=== PATIENT | female | born 2000 | race Two or more races ===

== ENCOUNTER 2019-02-07 20:12 | Emergency (ER) | payer SELFPAY ==
[~2019-02-07] VITALS: Ht 167.6 cm; Wt 74.4 kg
[2019-02-07 23:40] VITALS: BP 119/82
[2019-02-07] MEDS ORDERED: HYDROmorphone 2 MG/ML VIAL IV ONE (23:45)
[2019-02-07] MEDS ORDERED: ONDANSETRON PF 4 MG/2 ML VIAL. IVP ONE (23:45)
[2019-02-07 23:54] LABS: BASO # 0.1 x10^3/uL (0.0-0.2); BASO % 1 % (0-3); EOS % 0 % (0-3); HEMATOCRIT 37.5 % (36.0-47.0); HEMOGLOBIN 12.6 g/dL (12.0-15.5); LYMPH # 1.5 x10^3/uL (1.0-4.8); LYMPH % 15 % (24-48); MEAN CORPUSCULAR HEMOGLOBIN 28 pg (25-35); MEAN CORPUSCULAR HGB CONC 34 g/dL (31-37); MEAN CORPUSCULAR VOLUME 83 fL (79-100); MONO # 0.7 x10^3/uL (0.0-1.1); MONO % 7 % (0-9); NEUT % 78 % (31-73); PLATELET COUNT 324 x10^3/uL (140-400); WHITE BLOOD COUNT 10.3 x10^3/uL (4.0-11.0)
--- NOTE | 2019-02-08 00:05 | RAD ---
Indication:Fall. TECHNIQUE: 3 views of the left ankle COMPARISON:None FINDINGS/ impression: Mildly displaced fracture of the medial malleolus. Mildly displaced oblique fracture of the distal fibula extending to the ankle mortise. Moderate ankle soft tissue edema. Electronically signed by: Kin Lin DO (02/08/2019 12:02 AM) [facility]
[2019-02-08 00:06] LABS: CALCIUM 8.6 mg/dL (8.5-10.1); CREATININE 0.7 mg/dL (0.6-1.0); GFR 106.7
--- NOTE | 2019-02-08 00:13 | PHYS DOC ---
Past Medical History Past Medical History: No Pertinent History Past Surgical History: No Surgical History Alcohol Use: None Drug Use: None Adult General Chief Complaint Chief Complaint: ANKLE PROBLEM HPI HPI Patient is a 18 year old female presents to the ED or to check on that of left ankle injury. Patient states that earlier this evening she was a skateboard when she fell onto her left ankle. Patient went to an urgent care where they did an x-ray. She was found to have a bimalleolar ankle fracture and was placed in a boot. Patient was sent to the ER for further evaluation and treatment. Review of Systems Review of Systems Constitutional: Denies fever or chills [] Respiratory: Denies cough or shortness of breath [] Cardiovascular: Denies chest pain Musculoskeletal: Complains of pain in the left ankle All other systems were reviewed and found to be within normal limits, except as documented in this note. Current Medications Current Medications Current Medications Medications (Trade) Dose Ordered Sig/Rene Start Time Stop Time Status Last Admin Dose Admin Hydromorphone HCl (Dilaudid) 0.5 mg 1X ONCE 02/07/19 23:45 02/07/19 23:46 DC 02/07/19 23:53 0.5 MG Ondansetron HCl (Zofran) 4 mg 1X ONCE 02/07/19 23:45 02/07/19 23:46 DC 02/07/19 23:54 4 MG Allergies Allergies Allergies Coded Allergies Type Severity Reaction Last Updated Verified No Known Drug Allergies 02/07/19 No Physical Exam Physical Exam Constitutional: Well developed, well nourished, no acute distress, non-toxic appearance. [] HENT: Normocephalic, atraumatic Eyes: PERRLA, EOMI Neck: Normal range of motion, no tenderness, supple Lungs & Thorax: No respiratory distress Extremities: Swelling in the left medial and lateral malleolus. Mild bruising. Neurovascularly intact. Neurologic: Alert and oriented X 3 Current Patient Data Vital Signs Vital Signs Date Time Temp Pulse Resp B/P (MAP) Pulse Ox O2 Delivery O2 Flow Rate FiO2 02/07/19 23:53 16 92 02/07/19 23:40 105 119/82 (94) Room Air 02/07/19 20:31 98.7 98.7 Lab Values Laboratory Tests Test 02/07/19 23:40 White Blood Count 10.3 x10^3/uL (4.0-11.0) Red Blood Count 4.50 x10^6/uL (3.50-5.40) Hemoglobin 12.6 g/dL (12.0-15.5) Hematocrit 37.5 % (36.0-47.0) Mean Corpuscular Volume 83 fL (79-100) Mean Corpuscular Hemoglobin 28 pg (25-35) Mean Corpuscular Hemoglobin Concent 34 g/dL (31-37) Red Cell Distribution Width 13.0 % (11.5-14.5) Platelet Count 324 x10^3/uL (140-400) Neutrophils (%) (Auto) 78 % (31-73) H Lymphocytes (%) (Auto) 15 % (24-48) L Monocytes (%) (Auto) 7 % (0-9) Eosinophils (%) (Auto) 0 % (0-3) Basophils (%) (Auto) 1 % (0-3) Neutrophils # (Auto) 8.0 x10^3/uL (1.8-7.7) H Lymphocytes # (Auto) 1.5 x10^3/uL (1.0-4.8) Monocytes # (Auto) 0.7 x10^3/uL (0.0-1.1) Eosinophils # (Auto) 0.0 x10^3/uL (0.0-0.7) Basophils # (Auto) 0.1 x10^3/uL (0.0-0.2) Prothrombin Time 14.0 SEC (11.7-14.0) Prothrombin Time INR 1.1 (0.8-1.1) Sodium Level 143 mmol/L (136-145) Potassium Level 4.0 mmol/L (3.5-5.1) Chloride Level 107 mmol/L (98-107) Carbon Dioxide Level 28 mmol/L (21-32) Anion Gap 8 (6-14) Blood Urea Nitrogen 11 mg/dL (7-20) Creatinine 0.7 mg/dL (0.6-1.0) Estimated GFR (Cockcroft-Gault) 106.7 BUN/Creatinine Ratio 16 (6-20) Glucose Level 99 mg/dL (70-99) Calcium Level 8.6 mg/dL (8.5-10.1) Total Bilirubin Pending Aspartate Amino Transferase (AST) Pending Alanine Aminotransferase (ALT) Pending Alkaline Phosphatase Pending Total Protein Pending Albumin Pending Albumin/Globulin Ratio Pending Laboratory Tests 02/07/19 23:40 Laboratory Tests 02/07/19 23:40 EKG EKG [] Radiology/Procedures Radiology/Procedures Ordered x-ray of the left ankle Impressions: X-ray shows mildly distressed fracture of the medial malleolus. There is also an oblique fracture of the distal fibula extending into the ankle mortise. Course & Med Decision Making Course & Med Decision Making Pertinent Imaging studies reviewed. (See chart for details) Ordered x-ray of her left ankle. Patient is given careful 0.5 mg IV Dilaudid for pain control. Discussed case with on-call orthopedic surgeon who recommends the patient can be sent home and be seen in the office this week. Patient is currently in a boot and will be nonweightbearing. Discussed results and plan of care with patient. Patient is instructed to follow up with PCP in one to 2 days. Appropriate discharge instructions given to patient to return to the ED or to seek immediate medical evaluation. Dragon Disclaimer Dragon Disclaimer This electronic medical record was generated, in whole or in part, using a voice recognition dictation system. Departure Departure Impression: Primary Impression: Ankle fracture, bimalleolar, closed Disposition: 01 HOME, SELF-CARE Condition: IMPROVED Referrals: KENYETTA DONG II, MD Additional Instructions: Appropriate discharge instructions given to patient to return to the ED or to seek immediate medical evaluation. Patient follow-up with PCP in one to 2 days. Patient instructed to return to ED if symptoms worsen or if any concerns Patient is to be nonweightbearing on the left lower extremity. Scripts Hydrocodone/Apap 5-325 (NORCO 5-325 TABLET) 1 Each Tablet 1 EACH PO PRN Q6HRS PRN for PAIN, #15 as needed for pain Prov: TAMMY COPELAND DO 02/08/19 TAMMY COPELAND DO Feb 08, 2019 00:13
[2019-02-08 00:14] LABS: ALBUMIN/GLOBULIN RATIO 1.1 (1.0-1.7); TOTAL BILIRUBIN 0.3 mg/dL (0.2-1.0); TOTAL PROTEIN 7.5 g/dL (6.4-8.2)
[2019-02-08] MEDS ORDERED: HYDR-3164 PO (00:19)
== END 2019-02-08 00:38 | disposition home or self-care (01) ==
LOC: ER 20:12
DX: S82.842A Displaced bimalleolar fracture of left lower leg, initial encounter for closed fracture (principal); V00.131A Fall from skateboard, initial encounter; Y93.51 Activity, roller skating (inline) and skateboarding; Y92.89 Other specified places as the place of occurrence of the external cause; Y99.8 Other external cause status
CPT/HCPCS: 36415; 73610; 80053; 85025; 85610; 96374; 96375; 99285; J1170; J2405

== ENCOUNTER 2019-02-13 06:18 | Day surgery (SDC) | payer SELFPAY ==
[~2019-02-13] VITALS: Ht 167.6 cm; Wt 74.8 kg
[~2019-02-13 06:18] MED LIST: HYDR-3164 PO
[2019-02-13] MEDS ORDERED: BUPIVACAINE MPF 0.5% 30 ML VIAL. ONE (06:56)
[2019-02-13] MEDS ORDERED: LIDOCAINE 1% 20 ML VIAL. ONE (06:56)
[2019-02-13] MEDS ORDERED: IV RINGERS,LACTATED 1000ML 1,000 ML IV SCH ×2 (07:00→09:29)
--- NOTE | 2019-02-13 07:11 | DISCH ---
DISCHARGE INSTRUCTIONS Condition on Discharge Condition on Discharge: Stable Activity After Discharge Activity Instructions for Disc: Other ROM activity Bathing Instructions: Shower-keep dressing dry Weight Bearing Status after Di: Non weight bearing Diet after Discharge Diet after Discharge: Regular Wound Incision Care Wound/Incision Care: Ice to area for comfort, Keep wound/cast CDI, Keep wound elevated, Do not change dressing Contacting the DRRuy after DC Call your doctor for: Concerns you may have Follow-Up Follow up with: Onelia in 2 wks KENYETTA DONG II, MD Feb 13, 2019 07:11
[2019-02-13] MEDS ORDERED: ONDANSETRON PF 4 MG/2 ML VIAL. ONE (07:13)
[2019-02-13] MEDS ORDERED: fentaNYL PF VIAL 100 MCG/2 ML VIAL ONE ×3 (07:13→09:24)
[2019-02-13] MEDS ORDERED: MIDAZOLAM HCL/PF 2 MG/2 ML VIAL. ONE (07:13)
[2019-02-13] MEDS ORDERED: PROPOFOL 20 ML IV ONE (07:13)
[2019-02-13] MEDS ORDERED: FAMOTIDINE 20 MG/2 ML VIAL ONE (07:13)
[2019-02-13] MEDS ORDERED: ROCURONIUM 50 MG/5 ML VIAL. ONE (07:13)
[2019-02-13] MEDS ORDERED: DEXAMETHASONE SOD PHOS 4 MG/ML VIAL ONE (07:13)
[2019-02-13] MEDS ORDERED: LIDOCAINE 2% PF 5 ML VIAL. ONE (07:13)
[2019-02-13] MEDS ORDERED: KETAMINE HCL IN NACL, ISO-OSM 50 MG/5 ML SYRINGE ONE (07:43)
[2019-02-13] MEDS ORDERED: GLYCOPYRROLATE 1 MG/5 ML VIAL. ONE (08:31)
[2019-02-13] MEDS ORDERED: NEOSTIGMINE METHYLSULFATE 5 MG/5 ML SYRINGE. ONE (08:31)
[2019-02-13] MEDS ORDERED: KETOROLAC 30 MG/ML VIAL. ONE (08:33)
[2019-02-13] MEDS ORDERED: DESFLURANE 61 TO 120 MINUTES IH ONE (09:03)
--- NOTE | 2019-02-13 09:08 | PDOC4 ---
Operative Note Operative Note Date of procedure: 02/13/2019 Surgeon: Darci Dong Preoperative diagnosis: Closed left bimalleolar ankle fracture Postoperative diagnosis: Same Procedure performed: Open reduction internal fixation closed left bimalleolar ankle fracture Anesthesia: Gen. Findings: Acute fracture at medial malleolus and distal fibula Blood loss: 10mL Tourniquet time: 63 min Complications: none Components inserted: Davis and nephew 5 hole distal fibular locking plate, one 4.0 mm cannulated screw medially Reason for procedure: Patient is a pleasant young female who twisted her ankle while skateboarding. She was seen in the emergency department and referred to myself for definitive management. Please see my outpatient consult note for further details. Her and her mother and I had a discussion of the risks, benefits, and alternatives and he elected to proceed with surgery. Description of procedure: Patient was greeted in the preoperative area by myself for the correct extremity was verified and marked. She was taken back to the operative suite and her antibiotics were started as she was brought back. Once in the operating room, she was transferred gently supine to the operative room table and secured to the bed with all pressure points padded. She underwent successful induction of a general anesthetic. Chlorhexidine pre-scrub was accomplished to her left lower extremity in a nonsterile tourniquet was taped in place to her left thigh. We then proceeded to prep and drape left lower extremity in our usual sterile fashion and conducted our standard preoperative timeout. After this, I palpated and marked her bony anatomy and naldo lines for my planned incisions. Extremity was exsanguinated with an Esmarch and tourniquet insufflated to 250 mmHg. I began the surgery by incising skin laterally over her distal fibula. Skin was incised with a scalpel to dissect this subcutaneous tissue with Metzenbaums and electrocautery. Hemostasis was achieved with electrocautery as I proceeded. Her fascia was incised in line with the skin incision. Identified the fracture site and used a periosteal elevator to expose the fracture site and distal fibula in anticipation of plate application. I used a dental pick to pull distraction on the distal fragment and a small curet and metal tipped suction device were used to remove the hematoma. I irrigated out the fracture site for visualization and remove some periosteum that was interposed with a Rongeur. After this, I used a [id number] reduction clamp and direct pressure over the distal fibula while controlling her ankle then clamped the fracture in a reduced position. I confirmed appropriate reduction under triplanar fluoroscopy. I then provisionally sized and placed my plate against bone and checked this as well. I then secured the plate to the bone with a nonlocking screw proximal to the fracture site. I next directed my attention to attempting to place a screw and leg fashion, however her anterior cortex was quite thin at its apex and split while drilling. After this, I placed locking screws distal to the fracture site followed by filling the remainder of the screw holes proximally with nonlocking screws. At this point, I directed my attention to the medial side of her ankle. I made a curvilinear incision centered over the medial malleolus and dissected subcutaneous cutaneous tissue reflected electrocautery. Fascia was incised in line with the skin incision. I placed a self-retaining retractor and identified the fracture site and remove some interposed periosteum grade I again pulled traction on the medial malleolus fragment and irrigated out the joint very thoroughly. I used a metal tipped suction device and curet at the fracture site to debride it. I then used the dental pick to reduce the fracture confirming good reduction under triplanar fluoroscopy and then advanced to guide pin into the medial malleolus and distal tibia. I elected to place only a single screw given the small size of this medial malleolus piece. I then measured and drilled and then placed my screw. I then removed the guidepin. I took my final images. I performed an extra rotation stress test which was negative. I then thoroughly irrigated out the operative field and proceeded to close fascia with simple interrupted 0 Vicryl followed by inverted interrupted 2-0 Vicryl for subcutaneous tissue and 2-0 nylon in a mattress fashion for both incisions. Prior to wound closure, all counts correct 2. No complications. She tolerated surgery well. At the conclusion of the surgery, the leg was cleansed and dried, local anesthetic was infiltrated in the jennie-incisional subcutaneous tissue, and a sterile soft dressing was applied followed by a well-padded AO splint. This was allowed to harden she was awakened. Tourniquet had been let down. Hemostasis had been ensured with electrocautery. Once she was awake, she was transferred gently supine to the recovery room cart and taken to the PACU in a stable and extubated condition. Postoperative plan is to discharge her home, nonweightbearing left lower extremity. She will see me in 2 weeks, sooner should a problem arise. DARCI DONG II, MD Feb 13, 2019 09:08
[2019-02-13] MEDS: fentaNYL PF VIAL 100 MCG/2 ML VIAL IV PRN ×4 (09:14→09:33)
[2019-02-13] MEDS ORDERED: HYDROcodone/APAP 5/325MG 1 TAB TABLET PO ONE (09:15)
[2019-02-13] MEDS ORDERED: HYDROmorphone 2 MG/ML VIAL IV PRN (09:30)
[2019-02-13] MEDS ORDERED: fentaNYL PF VIAL 100 MCG/2 ML VIAL IV PRN (09:30)
[2019-02-13] MEDS ORDERED: ONDANSETRON PF 4 MG/2 ML VIAL. IV PRN (09:30)
[2019-02-13] MEDS ORDERED: PROCHLORPERAZINE 10 MG/2 ML VIAL. IV PRN (09:30)
[2019-02-13] MEDS: MORPHINE SULFATE 2 MG/ML VIAL. IV PRN ×2 (09:44→10:21)
[2019-02-13 10:46] VITALS: BP 109/59
== END 2019-02-13 11:28 | disposition home or self-care (01) ==
LOC: SURG 06:18
PROVIDERS: ATTEND Orthopaedic Surgery Sports Medicine
DX: S82.842A Displaced bimalleolar fracture of left lower leg, initial encounter for closed fracture (principal); X58.XXXA Exposure to other specified factors, initial encounter; Y93.89 Activity, other specified; Y92.89 Other specified places as the place of occurrence of the external cause; Y99.8 Other external cause status
CPT/HCPCS: 27814; 76000; 81025; A7015; C1713; J0690; J0780; J1100; J1885; J2001; J2250; J2270; J2405; J2704; J2710; J3010; J3490